=== PATIENT | female | born 1995 | race Caucasian/White ===

== ENCOUNTER → 2016-06-30 | Outpatient (CLI) | payer OTHER ==
--- NOTE | 2016-06-30 12:31 | MR ---
MRI upper extremity, left wrist History: Left wrist pain. Pain after heavy use. Possible ganglion. ICD-10 code M67.439. Technique: MRI was performed of the left wrist using a 3 [employer] MRI system. Sagittal, coronal, and axi al imaging was obtained with standard imaging sequences. Findings: No significant bone marrow abnormality is visualized. No evidence for an occult fracture. There is a small fluid collection dorsal to the proximal pole of the scaphoid in the dorsal capsule, indicating a ganglion measuring 6.5 mm. Scapholunate and lunotriquetral ligaments are intact and unremarkable. There is abnormal signal inten sity in the articular disk at the triangulofibrocartilage complex extending to the ulnar-sided articu lar surface dorsally, indicating a small partial tear. No significant attenuation in the radial attac hment. Minimal abnormal signal intensity is seen in the extensor carpi ulnaris tendon at the level of the ul jeri styloid. The other visualized tendons are unremarkable. Impression: 1. Partial tear of the articular disk of the triangulofibrocartilage complex of the ulnar-sided surfa ce dorsally. 2. 6.5-mm dorsal ganglion. 3. Minimal tendinopathy extensor carpi ulnaris tendon.
== END ==
LOC: FIMAGING 10:05
PROVIDERS: ATTEND Physician Assistant Medical
DX: M67.432 Ganglion, left wrist (principal); M24.132 Other articular cartilage disorders, left wrist